=== PATIENT | female | born 1985 | race Caucasian/White ===

== ENCOUNTER 2016-06-04 03:58 | Emergency (ER) | payer BC ==
[2016-06-04] MEDS ORDERED: Ondansetron HCl/PF 4 MG/2 ML Vial ONE (04:24)
[2016-06-04] MEDS ORDERED: Sodium Chloride 0.9% 1,000 ML ONE (04:24)
[2016-06-04 04:30] LABS: Blood, Urine Large (Negative); Clarity Cloudy (Clear); Glucose, Urine (Dipstick) Negative (Negative); Leukocyte Negative (Negative); Nitrite Negative (Negative); Protein, Urine (Dipstick) 100 mg/dL (Neg-Trace); pH, Urine 7.5 (5.0-9.0)
[2016-06-04 04:32] LABS: Bilirubin Negative (Negative); Icto Negative (Negative)
[2016-06-04 04:33] LABS: Pregu Control Bar Appear? YES (CONTROL BAR)
[2016-06-04 04:35] LABS: Bacteria/HPF None Seen HPF (None Seen); RBC/HPF GREATER THAN 50-TNTC HPF (0-3); Squamous Epithelial 21-50 HPF (0-3); WBC/HPF None Seen HPF (0-3)
[2016-06-04 04:36] LABS: Crystals/HPF 3+ AMORPH PHOS HPF (Negative)
[2016-06-04 04:36] LABS: #Basophils 0.1 thou/uL (0.0-0.2); #Lymphocytes 0.8 thou/uL (1.20-3.40); #Monocytes 0.4 thou/uL (0.11-0.59); #Neutrophils 11.2 thou/uL (1.40-6.50); %Basophils 0.5 % (0.0-1.0); %Eosinophils 0.1 % (0.0-10.0); %Lymphocytes 6.6 % (21.0-51.0); %Monocytes 3.3 % (0.0-10.0); %Neutrophils 89.6 % (42.0-75.0); Hemoglobin 13.4 g/dL (12.0-16.0); Mean Corpuscular HGB CONC 33.6 g/dL (32.0-36.0); Mean Corpuscular Hemoglobin 29.6 pg (27.0-31.0); Mean Platelet Volume 7.9 fL (7.4-10.4); Platelet Count 259 thou/uL (130-400); Red Blood Cell (RBC) Count 4.51 mill/uL (4.20-5.40); White Blood Cell (WBC) Count 12.6 thou/uL (4.8-10.8)
[2016-06-04 04:49] LABS: ALT (SGPT) 25 U/L (0-55); AST (SGOT) 22 U/L (5-34); Albumin 4.2 g/dL (3.5-5.0); Alkaline Phosphatase 45 U/L (40-150); Anion Gap 13 mmol/L (10-20); BUN (Urea Nitrogen) 11 mg/dL (7.0-18.7); Bilirubin, Total 0.4 mg/dL (0.2-1.2); Calc. Creatinine Clearance 0 mL/min (70-130); Calcium 8.7 mg/dL (7.8-10.44); Carbon Dioxide 25 mmol/L (22-29); Chloride 101 mmol/L (98-107); Estimated GFR-MDRD 85; Globulin 3.2 g/dL (2.4-3.5); Glucose 125 mg/dL (70-105); Lipase 13 U/L (8-78); Protein, Total 7.4 g/dL (6.0-8.3); Sodium 135 mmol/L (136-145)
[2016-06-04] MEDS ORDERED: Ketorolac Tromethamine 30 MG/ML VIAL ONE (06:13)
[2016-06-04] MEDS ORDERED: HYDROcodone/Acetaminophen 5/325 mg Tablet ONE (06:13)
--- NOTE | 2016-06-04 08:51 | CT ---
PRELIMINARY REPORT/[facility]/EMERGENCY AFTER HOURS PROCEDURE: EXAM: CT Abdomen and Pelvis Without Intravenous Contrast ([id number], [id number]). CLINICAL HISTORY: The patient is a 31 years female; Pain and signs and symptoms; Nausea and vomiting; Other: Left flan k; Patient HX: Left flank pain and tenderness; C/O nausea and multiple episodes of vomiting since mi dnight. ; Additional info: Pt has no urinary complaints and no pain radiating around abdomen. Hematu rommel \T\ elevated wbc; Preg test negExamination order is timed 06/04/2016 4:41 AM. TECHNIQUE: Axial computed tomography images of the abdomen and pelvis without intravenous contrast. Coronal and sagittal reformatted images were created and reviewed. COMPARISON: No relevant prior studies available. FINDINGS: LOWER THORAX: No acute findings. ABDOMEN: LIVER: Unremarkable as visualized. GALLBLADDER AND BILE DUCTS: No calcified stones. No ductal dilation. PANCREAS: Unremarkable as visualized without contrast. SPLEEN: Unremarkable. ADRENALS: Unremarkable. KIDNEYS AND URETERS: There is slight prominence of the left renal collecting system and renal pelvis . There is a small stone along the posterior wall of the renal pelvis measuring approximately 1.5 mm . There is likely a small stone upper pole right kidney seen on the coronal images. No right hydrone phrosis. STOMACH AND BOWEL: There is stool throughout colon correlate for constipation. No dilatation or evid ence of obstruction. No evidence of bowel wall thickening. APPENDIX: The appendix is well seen and appears normal in size, without surrounding inflammatory candis nges. PELVIS: BLADDER: Unremarkable as visualized. REPRODUCTIVE: Normal as visualized ABDOMEN and PELVIS: INTRAPERITONEAL SPACE: Unremarkable as visualized. No free air. No significant fluid collection. BONES/JOINTS: No acute fracture. No dislocation. SOFT TISSUES: No prevertebral soft tissue swelling. VASCULATURE: Unremarkable as visualized. No abdominal aortic aneurysm. LYMPH NODES: No enlarged lymph nodes. IMPRESSION: 1. Slight prominence of left renal collecting system and renal pelvis. Tiny stone in left renal pelv is. Probable tiny nonobstructing stone in upper right kidney. 2. Constipation is suggested. No evidence of bowel obstruction. Thank you for allowing us to participate in the care of your patient. Dictated and Authenticated by: Raisa Ponce MD 06/04/2016 5:36 AM Central Time ([place] \T\ [place]) FINAL REPORT EMERGENT AFTER HOURS CT ABDOMEN AND PELVIS FINAL REPORT: IMPRESSION: I agree with the preliminary interpretation given by [facility]. Bilateral tiny nephrolithiasis. Prominence of the left renal collecting system and left ureter may reflect recently passed calculus. No eviden ce of ureteral or bladder calculi. POS: MELISSA
== END 2016-06-04 06:20 | disposition home or self-care (01) ==
LOC: NAV ERS 03:58
DX: N20.0 Calculus of kidney (principal)
CPT/HCPCS: 36415; 74176; 80053; 81003; 81015; 81025; 83690; 85025; 96361; 96374; 96375; J1885; J2270; J2405; J7050